=== PATIENT | male | born 1960 | race Caucasian/White ===

== ENCOUNTER 2019-12-01 10:08 | Observation (INO) ==
[2019-12-01] MEDS ORDERED: SALINE LOCK IV FLUID XX ONE (14:48)
--- NOTE | 2019-12-01 15:06 | HISTORY AND PHYSICAL ---
CHIEF COMPLAINT: Chest pain. HISTORY: Mr. 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 He comes into the office stating that for the past 2 months he has noted recurrent episodes of chest pressure. This may last for moments to several hours. It has been happening in a crescendo manner. For instance, this morning as he walked from the parking lot to the hospital he developed heaviness in the chest about 3 out of 10 in severity. At the time of his presentation to my office this morning he was still experiencing the discomfort. The patient has not noticed any additional symptoms, no palpitations, no syncope, no dizziness, no edema, no other illnesses. He feels slightly short of breath when performing physical activity. PAST HISTORY: Positive for the finding of hyperlipidemia in the past and subsequently we did coronary calcium score back in December,, that yielded a value of 519 units which made his tenure risk for cardiac events elevated at 25%. Because of that, we suggested to perform a myocardial perfusion stress test back in January,, along with an echocardiogram. Both of those tests came back normal. The patient has some history of arthritis involving the meniscus of the right knee. There is no prior history of diabetes or hypertension. SURGICAL HISTORY: Positive for shoulder and knee surgery. SOCIAL HISTORY: He is . He has been working at [employer] for a long time. He is retired from [employer]. He has 2 grown children. He denies smoking and drinking. FAMILY HISTORY: Positive for heart disease in both of his parents who in their 70s. REVIEW OF SYSTEMS: OTHER than the chest pain that he has reported, there are no other significant abnormalities. PHYSICAL EXAMINATION: VITAL SIGNS: Today his blood pressure is 118/76, pulse 65 per minute, respirations 18. He is afebrile. GENERAL: He is awake, alert and oriented, in no distress. HEENT: Unremarkable. CHEST: Clear to auscultation and percussion. HEART: Sounds are regular and rhythmic. No gallop or murmur. ABDOMEN: Soft and nontender. No masses or hepatomegaly. EXTREMITIES: Good pulses. No peripheral edema. NEUROLOGICAL: He follows commands and moves all extremities. Gait is normal. A 12-lead EKG shows sinus rhythm with early repolarization type of pattern. No acute ischemic change noted. IMPRESSION: This patient presents with: 1. Crescendo pattern of angina pectoris of new onset. This has been going on for [address] evidence of extensive coronary artery sclerosis noted back in December,. 3. Hyperlipidemia. 4. History of arthritis. 5. Borderline obese. RECOMMENDATION: Because of his presentation, I am advising admission to the hospital, management with enoxaparin, aspirin, metoprolol, amlodipine. We will continue atorvastatin. I have discussed with him the diagnostic options. In my opinion, he really needs to proceed with a diagnostic heart catheterization. The benefits, risks and complications were discussed. He understood, and he has requested to proceed with it. We will make arrangements. The patient is going to be admitted to the hospital today and prepared for the heart catheterization in the morning. cc: Errol Corona MD
[2019-12-01 15:23] LABS: BASO# 0.04 X1000 (0.0-0.2); BASO% 0.8 % (0.0-0.8); EOS# 0.12 X1000 (0.0-0.7); EOS% 2.4 % (0.0-10.0); HEMATOCRIT 43.8 % (42.0-52.0); HEMOGLOBIN 14.2 g/dL (14.0-18.0); LYMPH# 1.34 X1000 (1.2-3.4); LYMPH% 26.9 % (20.5-51.1); MCH 26.2 PG (27-31); MCHC 32.4 g/dL (33-37); MCV 80.8 FL (81-99); MONO# 0.39 X1000 (0.11-0.59); MONO% 7.8 % (1.7-9.3); MPV 10.9 FL (7.4-10.4); NEUT# 3.09 X1000 (1.4-6.5); NEUT% 62.1 % (42.2-75.2); PLT 249 X1000 (130-400); RBC 5.42 XMIL (4.7-6.1); RDW 15.1 % (11.5-14.5); WBC 4.98 X1000 (4.8-10.8)
[2019-12-01 15:33] LABS: INR 0.97
[2019-12-01 15:34] LABS: PTT 26.3 Seconds (22.3-41.8)
[2019-12-01] MEDS ORDERED: ASPIRIN PO SCH (16:00)
[2019-12-01 16:19] LABS: AGAP 10; ALB/GLOB RATIO 1.5; ALBUMIN 4.4 g/dL (3.5-5.0); ALKALINE PHOSPHATASE 53 U/L (32-122); BUN 16 mg/dL (8-22); CALCIUM 9.3 mg/dL (8.8-10.2); CHLORIDE 103 mmol/L (98-107); COSMO 279; ESTIMATED GFR > 60; GLUCOSE 98 mg/dL (70-104); GOT 24 U/L (10-34); GPT 24 U/L (10-44); POTASSIUM 4.6 mmol/L (3.5-5.1); SODIUM 139 mmol/L (136-145); TCO2 26 mmol/L (25-35); TOTAL BILIRUBIN 0.19 mg/dL (0.20-1.00); TOTAL PROTEIN 7.3 g/dL (6.3-8.3)
[2019-12-01] MEDS: LOVENOX SUBQ SCH (17:08)
[2019-12-01 17:17] LABS: CK PROFILE 43 U/L (24-204); IRON SATURATION 43 %; TIBC 208 ug/dL; TOTAL IRON 90 ug/dL (53-167); UNBOUND IRON 118 ug/dL (112-346)
[2019-12-01 19:04] LABS: URINE SOURCE VOIDED
[2019-12-01 19:08] LABS: BILIRUBIN URINE NEGATIVE (NEGATIVE); BLOOD URINE NEGATIVE (NEGATIVE); COLOR STRAW; GLUCOSE URINE NEGATIVE (NEGATIVE); KETONE URINE NEGATIVE (NEGATIVE); LEUKOCYTES URINE NEGATIVE (NEGATIVE); NITRITE URINE NEGATIVE (NEGATIVE); PROTEIN URINE NEGATIVE (NEGATIVE); SP GRAVITY URINE 1.013; TURBIDITY URINE CLEAR (CLEAR); UR EPITHELIAL CELLS <10 /HPF (<10); URINE BACTERIA NEGATIVE /HPF; URINE RBC <10 /HPF (<10); URINE WBC <10 /HPF (<10); UROBILINOGEN URINE NORMAL (NORMAL)
[2019-12-01] MEDS ORDERED: LIPITOR PO SCH ×2 (21:00)
[2019-12-01] MEDS ORDERED: LOPRESSOR PO SCH (21:00)
[2019-12-01] MEDS ORDERED: NORVASC PO SCH (21:00)
[2019-12-02] MEDS: LOVENOX SUBQ SCH (04:23)
[2019-12-02] MEDS ORDERED: NITROGLYCERIN ONE (07:29)
[2019-12-02] MEDS ORDERED: HEPARIN 1000 UNITS/NS 2,000 UNIT/1,000 ML IV.SOLN ONE (07:29)
--- NOTE | 2019-12-02 07:51 | EKG Report ---
Test Performed on : 12/02/2019 07:21:18 AM Test Reason : Chest pain/unstable angina Blood Pressure : / mmHG Vent. Rate : 067 BPM Atrial Rate : 067 BPM P-R Int : 160 ms QRS Dur : 086 ms QT Int : 412 ms P-R-T Axes : 010 013 045 degrees QTc Int : 435 ms Normal sinus rhythm. Normal ECG No previous ECGs available Confirmed by Sharonda Olivares MD ([id number]) on 12/02/2019 4:35:53 PM
[2019-12-02] MEDS ORDERED: DEMEROL ONE (07:52)
[2019-12-02] MEDS ORDERED: CLAVE TWINSITE 32 IN 11959 ONE (07:53)
[2019-12-02] MEDS ORDERED: NS 1,000 ML ONE (07:53)
[2019-12-02] MEDS ORDERED: CLAVE PUMP SET NO FILTER 12260 ONE (07:53)
[2019-12-02] MEDS ORDERED: VERSED ONE (07:53)
[2019-12-02] MEDS ORDERED: NS 1,000 ML IV SCH (09:30)
--- NOTE | 2019-12-02 10:32 | EKG Report ---
Test Performed on : 12/02/2019 09:15:52 AM Test Reason : s/p heart cath Blood Pressure : / mmHG Vent. Rate : 063 BPM Atrial Rate : 063 BPM P-R Int : 142 ms QRS Dur : 092 ms QT Int : 434 ms P-R-T Axes : 035 036 044 degrees QTc Int : 444 ms Normal sinus rhythm. Normal ECG When compared with ECG of 02-DEC-2019 07:21, (Unconfirmed) No significant change was found Confirmed by Sharonda Olivares MD ([id number]) on 12/02/2019 4:36:04 PM
--- NOTE | 2019-12-02 13:42 | CARDIAC CATH REPORT ---
DATE: 12/02/2019 PROCEDURES: 1. Left heart catheterization. 2. Selective bilateral coronary arteriography. 3. Left ventriculography. 4. Opacification of the ascending aorta, aortic root injection. 5. Opacification of the right femoral artery with successful deployment of 6 [place] Angio-Seal device. HISTORY: Mr. Potter is a 59-year-old male who is known to have coronary atherosclerosis. Previous coronary calcium score was reported to be in the 500 range indicating significant coronary calcification. Presented to the office with 2 months history of new onset of chest discomfort exertional. He was admitted to the hospital urgently and put on Lovenox, aspirin, beta- blockers, and calcium blockers. First, high-sensitivity troponin was elevated at 64 ng/L. He was advised to pursue heart catheterization. Benefits, risks and complications were discussed. He understood and requested to proceed. During the performance of the case and with the first injection of the left coronary artery, there was some indication of possibly significant aortic valve regurgitation and therefore performed an aortic root injection. 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 The right groin was prepped and draped in a sterile fashion, anesthetized with lidocaine 1%. A 6 [place] sheath was inserted into the right femoral artery by following the modified Seldinger technique. Using 6 [place] left and right Amanda catheters, the left and the right coronary artery were sequentially opacified in multiple projections. Using the right Amanda catheter, the left ventricle was opacified in 60 degree BERMUDIAN projection and 30 degree ANGEL projection by hand injection. Then, the right Amanda catheter was replaced by a 6 [place] pigtail catheter and the ascending aorta was opacified injecting 44 mL of Omnipaque at 20 mL/second. Adequate opacification of the aortic root was achieved. Next opacification of the right femoral artery was accomplished, and then Angio-Seal device was deployed successfully. The patient tolerated the procedure well without complications. SUMMARY OF HEMODYNAMIC FINDINGS: Central aortic pressure 121/63 with a mean of 88, left ventricular pressure 123/11, post LV gram 119/12. Final central aortic pressure is 132/50. SUMMARY OF THE ANGIOGRAPHIC FINDINGS: 1. Left main coronary artery: This vessels appear to be anatomically normal arising from the left coronary sinus of Valsalva in a normal fashion. It divides into LAD, a ramus intermedius, and circumflex. 2. Left anterior descending coronary artery: This vessel shows mild calcification in the proximal portion, gives rise to a good size septal branch. It also gives rise to a good size diagonal vessel. The LAD is free of any critical obstruction. 3. Ramus intermedius: The ramus intermedius appears to be a mildly diffusely diseased vessel probably 20% to 30% proximally. No critical stenosis appears to be present. 4. Circumflex: The circumflex coronary artery appears to be a nondominant vessel. It basically supplies 1 obtuse marginal branch. The circumflex shows diffuse disease in its middle third to distal third in the order of 30%. No more than 40%. No critical stenosis is noted in the circumflex. 5. Right coronary artery: The right coronary artery is a dominant vessel. It supplies the sinus silvia branch and the right coronary artery is somewhat tortuous. It shows some mild diffuse irregularities in the order of 20% proximally and its mid and distal segment. No critical lesions are noted. Right coronary artery divided into a posterior descending branch and posterolateral branch. LEFT VENTRICULOGRAM: Left ventriculogram in the 30 degree ANGEL projection and 60 degree BERMUDIAN projection shows excellent left ventricular contractility, ejection fraction is estimated at 65% to 70%. AORTOGRAM: The aortic root was opacified in the 60 degree BERMUDIAN projection and there is a mild-to- moderate degree of aortic regurgitation noted. The root appears to be dilated to some extent. OPACIFICATION OF THE RIGHT FEMORAL ARTERY: The right femoral artery is unremarkable. Angio-Seal device was deployed successfully. SUMMARY: This study shows: 1. Mild diffuse coronary artery disease involving mostly the circumflex which is nondominant and the right coronary artery. There is evidence of coronary calcification. 2. Normal left ventricular systolic function, ejection fraction of 60%. 3. No mitral regurgitation. 4. Normal LVEDP. 5. Some enlargement of the aortic root is noted with a [id number] degree of aortic regurgitation. 6. Unremarkable right femoral artery, successful deployment of Angio-Seal device. RECOMMENDATIONS: At this time, the patient will be treated medically with clopidogrel, beta- blockers, calcium blockers, and high-dose Lipitor. We will see how he does. We will follow him at the office. We will probably let him go home today. cc: Errol Corona MD
[2019-12-02 16:47] VITALS: BP 131/81
[2019-12-03] MEDS ORDERED: PLAVIX PO SCH (09:00)
[2019-12-03] MEDS ORDERED: TOPROL XL PO SCH (09:00)
[2019-12-03] MEDS ORDERED: NORVASC PO SCH (09:00)
== END 2019-12-02 18:03 | disposition home or self-care (01) | DRG 287 ==
LOC: DIRADM 10:08 → INTOOBSV 10:08 → EDIPHOLD 13:44 → 4N 16:50 → 2N 12-02 09:00
PROVIDERS: ADMIT Internal Medicine Cardiovascular Disease; ATTEND Internal Medicine Cardiovascular Disease